=== PATIENT | female | born 1985 | race Caucasian/White ===

== ENCOUNTER → 2016-06-03 | Outpatient (CLI) | payer MEDICAID ==
[~2016-06-03] MED LIST: Z.0.NO CURRENT MEDS
--- NOTE | 2016-06-03 20:19 | EKG ---
Date Performed: 06/03/2016 Time Performed: 11:20:15 PTAGE: 31 years EKG: SINUS BRADYCARDIA Nonspecific ST and T wave abnormalities BORDERLINE ECG PREVIOUS TRACING : 10/16/2012 11.24 Compared to prior tracing no significant change DOCTOR: Toñito Bah Interpretating Date/Time 06/03/2016 20:17:44
== END ==
LOC: HCAV 10:48
DX: F25.0 Schizoaffective disorder, bipolar type (principal); F43.12 Post-traumatic stress disorder, chronic; R00.1 Bradycardia, unspecified
CPT/HCPCS: 93005

== ENCOUNTER → 2017-05-12 | Outpatient (CLI) | payer MEDICAID ==
--- NOTE | 2017-05-12 16:48 | EKG ---
Date Performed: 05/12/2017 Time Performed: 09:07:46 PTAGE: 31 years EKG: Sinus bradycardia. Poor R wave progression - probable normal variant Septal T wave changes are nonspecific Low QRS voltages in precordial leads Borderline ECG PREVIOUS TRACING : 06/03/2016 11.20 Since the previous tracing, no significant change noted DOCTOR: Karine Rojas Interpretating Date/Time 05/12/2017 16:46:38
== END ==
LOC: HCAV 08:45
DX: F25.0 Schizoaffective disorder, bipolar type (principal); F43.12 Post-traumatic stress disorder, chronic; R94.31 Abnormal electrocardiogram [ECG] [EKG]
CPT/HCPCS: 93005